=== PATIENT | female | born 1985 | race Two or more races ===

== ENCOUNTER 2020-05-28 13:09 | Emergency (ER) | payer BC ==
[~2020-05-28] VITALS: Ht 170.2 cm; Wt 100.0 kg
[2020-05-28 14:24] LABS: BILIRUBIN,URINE NEGATIVE (NEG); CLARITY,URINE CLEAR; COLOR,URINE YELLOW; NITRITE,URINE NEGATIVE (NEG); PH,URINE 6.5 (<5.0-8.0); PROTEIN,URINE NEGATIVE (NEG-TRACE)
[2020-05-28 14:51] LABS: BACTERIA,URINE FEW /HPF (0-FEW); RBC,URINE OCC /HPF (0-2); SQUAMOUS EPITHELIAL CELL,UR FEW /LPF
[2020-05-28 15:04] LABS: BASO # 0.1 x10^3/uL (0.0-0.2); BASO % 1 % (0-3); EOS # 0.1 x10^3/uL (0.0-0.7); EOS % 1 % (0-3); HEMATOCRIT 42.7 % (36.0-47.0); HEMOGLOBIN 14.3 g/dL (12.0-15.5); LYMPH # 2.4 x10^3/uL (1.0-4.8); LYMPH % 22 % (24-48); MEAN CORPUSCULAR HEMOGLOBIN 29 pg (25-35); MEAN CORPUSCULAR HGB CONC 33 g/dL (31-37); MEAN CORPUSCULAR VOLUME 86 fL (79-100); MONO % 10 % (0-9); NEUT # 7.4 x10^3/uL (1.8-7.7); NEUT % 67 % (31-73); PLATELET COUNT 196 x10^3/uL (140-400); RED BLOOD COUNT 4.95 x10^6/uL (3.50-5.40); RED CELL DISTRIBUTION WIDTH 14.5 % (11.5-14.5)
--- NOTE | 2020-05-28 15:09 | PHYS DOC ---
Past Medical History Past Medical History: No Pertinent History Past Surgical History: No Surgical History Smoking Status: Never Smoker Alcohol Use: Occasionally Drug Use: None General Adult EDM: Chief Complaint: ABDOMINAL PAIN HPI: HPI: Patient is a 34 year old female who presented to ER today for evaluation of nausea vomiting and abdominal pain for the last 4 days. Patient states she vomits so much over the weekend that she did not want to eat anymore. Patient denies any fever, no cough, no trouble breathing. Patient has history of ventral hernia. Review of Systems: Review of Systems: Constitutional: Denies fever or chills. [] Eyes: Denies change in visual acuity. [] HENT: Denies nasal congestion or sore throat. [] Respiratory: Denies cough or shortness of breath. [] Cardiovascular: Denies chest pain or edema. [] GI: Positive for nausea vomiting and abdominal pain, no diarrhea. : Denies dysuria. [] Musculoskeletal: Denies back pain or joint pain. [] Integument: Denies rash. [] Neurologic: Denies headache, focal weakness or sensory changes. [] Endocrine: Denies polyuria or polydipsia. [] Lymphatic: Denies swollen glands. [] Psychiatric: Denies depression or anxiety. [] Heart Score: Risk Factors: Risk Factors: DM, Current or recent (<one month) smoker, HTN, HLP, family history of CAD, obesity. Risk Scores: Score 0 - 3: 2.5% MACE over next 6 weeks - Discharge Home Score 4 - 6: 20.3% MACE over next 6 weeks - Admit for Clinical Observation Score 7 - 10: 72.7% MACE over next 6 weeks - Early Invasive Strategies Current Medications: Current Medications Medications (Trade) Dose Ordered Sig/[facility] Start Time Stop Time Status Last Admin Dose Admin Sodium Chloride 1,000 ml @ 1,000 mls/hr 1X ONCE 05/28/20 15:15 05/28/20 16:14 Allergies: Allergies: Allergies Coded Allergies Type Severity Reaction Last Updated Verified No Known Drug Allergies 07/04/15 No Physical Exam: PE: Constitutional: Well developed, well nourished, no acute distress, non-toxic appearance. [] HENT: Normocephalic, atraumatic, bilateral external ears normal, oropharynx moist, no oral exudates, nose normal. [] Eyes: PERRLA, EOMI, conjunctiva normal, no discharge. [] Neck: Normal range of motion, no tenderness, supple, no stridor. [] Cardiovascular:Heart rate regular rhythm, no murmur [] Lungs & Thorax: Bilateral breath sounds clear to auscultation [] Abdomen: Bowel sounds normal, soft, THERE IS tenderness TO PALPATION, NO HERNIA, no masses, no pulsatile masses. [] Skin: Warm, dry, no erythema, no rash. [] Back: No tenderness, no CVA tenderness. [] Extremities: No tenderness, no cyanosis, no clubbing, ROM intact, no edema. [] Neurologic: Alert and oriented X 3, normal motor function, normal sensory function, no focal deficits noted. [] Psychologic: Affect normal, judgement normal, mood normal. [] Current Patient Data: Labs: Laboratory Tests Test 05/28/20 13:56 05/28/20 14:11 Urine Collection Type Unknown Urine Color Yellow Urine Clarity Clear Urine pH 6.5 (<5.0-8.0) Urine Specific [place] 1.025 (1.000-1.030) Urine Protein Negative mg/dL (NEG-TRACE) Urine Glucose (UA) Negative mg/dL (NEG) Urine Ketones (Stick) Negative mg/dL (NEG) Urine Blood Negative (NEG) Urine Nitrite Negative (NEG) Urine Bilirubin Negative (NEG) Urine Urobilinogen Dipstick 1.0 mg/dL (0.2 mg/dL) Urine Leukocyte Esterase Negative (NEG) Urine RBC Occ /HPF (0-2) Urine WBC 5-10 /HPF (0-4) Urine Squamous Epithelial Cells Few /LPF Urine Bacteria Few /HPF (0-FEW) Urine Mucus Slight /LPF POC Urine HCG, Qualitative Hcg negative (Negative) Vital Signs: Vital Signs Date Time Temp Pulse Resp B/P (MAP) Pulse Ox O2 Delivery O2 Flow Rate FiO2 05/28/20 13:09 98.7 73 16 135/76 (95) 94 Room Air 98.7 EKG: EKG: [] Radiology/Procedures: Radiology/Procedures: [][facility] [address] [place], [place] [id number] IMAGING REPORT Signed PATIENT: EVELINA LEARY ACCOUNT: [id number] : 1985 LOCATION: ER AGE: 34 SEX: F EXAM STATUS: REG ER ORD. PHYSICIAN: CROW DELUCA DO REASON: ABDOMINAL PAIN, NAUSEA, VOMITING PROCEDURE: CT ABD PELV W/ IV CONTRST ONLY PQRS Compliance Statement: One or more of the following individualized dose reduction techniques were utilized for this examination: 1. Automated exposure control 2. Adjustment of the mA and/or kV according to patient size 3. Use of iterative reconstruction technique CT ABD PELV W/ IV CONTRST ONLY Clinical Indication: Reason: ABDOMINAL PAIN, NAUSEA, VOMITING Comparison: None. Technique: Helical CT imaging of the abdomen and pelvis is performed after 75 cc of Omnipaque 300 IV contrast. Oral contrast not administered. Findings: There is minimal atelectasis or scarring in the periphery of the posterior left lower lobe. Lung bases otherwise clear. Cardiac size normal. Gallbladder is contracted, limiting evaluation. There is a moderate sized fat-containing supraumbilical hernia. There is associated ventral hernia mesh. The liver is homogeneous. Probable Merly lobe. The spleen, pancreas, adrenal glands, abdominal aorta, and kidneys are normal. No obvious abnormality of the stomach. There is no dilated small bowel. There is mild descending colon diverticulosis. No colon wall thickening is identified. 2 probable pills are seen in the colon. Appendix is not seen, no secondary signs of appendicitis. There is no abdominal adenopathy or free fluid. There is mild wall thickening of the urinary bladder. Retroverted uterus. Question small functional cyst of the left ovary. No pelvic free fluid is seen. Left inguinal tortuous collateral vessels are seen. Small Schmorl's node inferior endplate of L4. IMPRESSION: 1. There is mild wall thickening of the urinary bladder. Considerations include nonspecific cystitis or chronic bladder outlet obstruction. 2. Mild descending colon diverticulosis. Electronically signed by: Ki Younger MD (05/28/2020 5:08 PM) [facility] DICTATED and SIGNED BY: KI YOUNGER MD DATE: 05/28/201707 Course & Med Decision Making: Course & Med Decision Making Pertinent Labs and Imaging studies reviewed. (See chart for details) [] Dragon Disclaimer: Dragpricilla Disclaimer: This electronic medical record was generated, in whole or in part, using a voice recognition dictation system. Departure Departure Impression: Primary Impression: Abdominal pain Additional Impression: Cystitis Disposition: HOME, SELF-CARE Condition: IMPROVED Referrals: NO PCP (PCP) follow up with your doctor as needed Patient Instructions: Abdominal Pain, Urinary Tract Infection Additional Instructions: Thank you for visiting our Emergency Department. We appreciate you trusting us with your care. If any additional problems come up don't hesitate to return to visit us. Please follow up with your primary care provider so they can plan additional care if needed and know about the problem that you had. If symptoms worsen come back to the Emergency Department. Any concerning symptoms that start such as chest pain, shortness of air, weakness or numbness on one side of the body, running high fevers or any other concerning symptoms return to the ER. Scripts Tramadol Hcl (TRAMADOL HCL) 50 Mg Tablet 50 MG PO Q6HRS PRN for PAIN, #15 TAB Prov: CROW DELUCA DO 05/28/20 Ciprofloxacin Hcl (CIPRO) 500 Mg Tablet 1 TAB PO BID for 7 Days, #14 TAB 0 Refills Prov: CROW DELUCA DO 05/28/20 Justicifation of Admission Dx: Justifications for Admission: Justification of Admission Dx: N/A CROW DELUCA DO May 28, 2020 15:09
[2020-05-28 15:12] LABS: CALCIUM 8.9 mg/dL (8.5-10.1); CREATININE 0.4 mg/dL (0.6-1.0); GFR 183.8; POTASSIUM 4.5 mmol/L (3.5-5.1)
[2020-05-28] MEDS ORDERED: IV NORMAL SALINE 1000ML BAG 1,000 ML IV ONE (15:15)
[2020-05-28 15:18] LABS: ALBUMIN 3.5 g/dL (3.4-5.0); ALBUMIN/GLOBULIN RATIO 0.9 (1.0-1.7); TOTAL BILIRUBIN 0.3 mg/dL (0.2-1.0); TOTAL PROTEIN 7.6 g/dL (6.4-8.2)
[2020-05-28] MEDS ORDERED: IOHEXOL 300 MG/ML 100ML VIAL. IV ONE (15:30)
[2020-05-28] MEDS ORDERED: CONTRAST GIVEN. MC PRN (15:30)
--- NOTE | 2020-05-28 17:11 | RAD ---
PQRS Compliance Statement: One or more of the following individualized dose reduction techniques were utilized for this examination: 1. Automated exposure control 2. Adjustment of the mA and/or kV according to patient size 3. Use of iterative reconstruction technique CT ABD PELV W/ IV CONTRST ONLY Clinical Indication: Reason: ABDOMINAL PAIN, NAUSEA, VOMITING Comparison: None. Technique: Helical CT imaging of the abdomen and pelvis is performed after 75 cc of Omnipaque 300 IV contrast. Oral contrast not administered. Findings: There is minimal atelectasis or scarring in the periphery of the posterior left lower lobe. Lung bases otherwise clear. Cardiac size normal. Gallbladder is contracted, limiting evaluation. There is a moderate sized fat-containing supraumbilical hernia. There is associated ventral hernia mesh. The liver is homogeneous. Probable Merly lobe. The spleen, pancreas, adrenal glands, abdominal aorta, and kidneys are normal. No obvious abnormality of the stomach. There is no dilated small bowel. There is mild descending colon diverticulosis. No colon wall thickening is identified. 2 probable pills are seen in the colon. Appendix is not seen, no secondary signs of appendicitis. There is no abdominal adenopathy or free fluid. There is mild wall thickening of the urinary bladder. Retroverted uterus. Question small functional cyst of the left ovary. No pelvic free fluid is seen. Left inguinal tortuous collateral vessels are seen. Small Schmorl's node inferior endplate of L4. IMPRESSION: 1. There is mild wall thickening of the urinary bladder. Considerations include nonspecific cystitis or chronic bladder outlet obstruction. 2. Mild descending colon diverticulosis. Electronically signed by: Ki Younger MD (05/28/2020 5:08 PM) [facility]
[2020-05-28] MEDS ORDERED: CIPR500T94 PO (18:19)
[2020-05-28] MEDS ORDERED: TRAM50TA PO (18:19)
[2020-05-28 18:30] VITALS: BP 134/61
== END 2020-05-28 18:39 | disposition home or self-care (01) ==
LOC: ER 13:09
DX: R10.30 Lower abdominal pain, unspecified (principal); R11.2 Nausea with vomiting, unspecified; K57.30 Diverticulosis of large intestine without perforation or abscess without bleeding
CPT/HCPCS: 36415; 74177; 80053; 81001; 81025; 83690; 85025; 87086; 96360; 99285; J7030; Q9967

== ENCOUNTER → 2020-11-09 | Outpatient (CLI) | payer OTHER, BC ==
[~2020-11-09] MED LIST: CIPR500T94 PO; TRAM50TA PO
--- NOTE | 2020-11-09 14:40 | KCIC ---
XR CHEST 1V INDICATION: TB follow up . COMPARISON STUDY: None. FINDINGS: Lungs: Normal lung volume. No pulmonary mass or consolidation. The tracheobronchial tree and hilar st ructures are normal. Pleura: No pleural effusion or pneumothorax. Heart and Mediastinum: The cardiomediastinal silhouette is normal. The great vessels of the thorax ar e normal. Bones and Soft Tissues: The bones and soft tissues are within normal limits. IMPRESSION: No acute cardiopulmonary process. Electronically signed by: Sanjiv Haider MD (11/09/2020 2:38 PM) [id number]
== END ==
LOC: KCIC 13:39
PROVIDERS: ATTEND Family Medicine
DX: Z11.1 Encounter for screening for respiratory tuberculosis (principal)
CPT/HCPCS: 71045